=== PATIENT | female | born 2000 | race Caucasian/White ===

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

== ENCOUNTER 2019-06-04 19:20 | Emergency (ER) | payer BC ==
[2019-06-04 20:32] VITALS: RESP 18
--- NOTE | 2019-06-04 22:09 | ED ---
General Adult HPI - General Chief complaint: Neuro Symptoms/Deficit Stated complaint: Weakness, Numbness L side, sent by for MRI Time Seen by Provider: 06/04/19 21:01 Source: patient Mode of arrival: ambulatory Limitations: no limitations - History of Present Illness Initial comments: 18-year-old female patient presents to the emergency department today for evaluation of headache, left-sided weakness, left-sided numbness. Patient states she's had symptoms for the last 2 weeks worsening over the last couple of days. Patient states that she has had similar experiences frequently over the last 4 years. Patient states that one symptoms, they last approximately 2-3 weeks and then resolved spontaneously. Patient states that she has been evaluated by her primary care physician and has had labs performed multiple times. She states that she has never received an official diagnosis. She denies ever having CT scan or MRI. Patient was seen at urgent care this evening and was advised to present to the emergency department for MRI. Patient states currently she has generalized headache with increased pain or behind the left thigh. Patient states she does occasionally get black spots or flashes in the left vision. States that she has numbness and tingling below the left knee. States that she also becomes very fatigued with these episodes and couldn't sleep 18 hours a day and not feel rested. She states that today when attempting to go up the stairs she is having difficulty getting her legs to work. Patient states occasionally her gait is often she years in one direction. She denies any fever or chills. She denies any chest pain, shortness of breath, nausea, or vomiting. Patient denies any recent rash, diarrhea, constipation, back pain, hematuria, dysuria, urinary urgency, urinary frequency, or any other complaints. Denies chance of . - Related Data Home Medications Medication Instructions Recorded Confirmed Falotec-Eyau-Srcy [id number] 1 - 2 tab PO Q6H PRN 06/04/19 06/04/19 [Excedrin] Enskyce 0.15mg/0.03mg 1 tab PO HS 06/04/19 06/04/19 Allergies Allergy/AdvReac Type Severity Reaction Status Date / Time blue dye Allergy Unknown Verified 06/04/19 21:37 Review of Systems ROS Statement: Those systems with pertinent positive or pertinent negative responses have been documented in the HPI. ROS Other: All systems not noted in ROS Statement are negative. Past Medical History Past Medical History: No Reported History History of Any Multi-Drug Resistant Organisms: None Reported Past Surgical History: Hernia Repair Past Psychological History: No Psychological Hx Reported Smoking Status: Never smoker Past Alcohol Use History: None Reported Past Drug Use History: None Reported General Exam Limitations: no limitations General appearance: alert, in no apparent distress, other (This is a well- developed, well-nourished adult female patient in no acute distress. Vital signs upon presentation are temperature 98.5F, pulse 86, respirations 18, blood pressure 137/86, pulse ox 100% on room air.) Eye exam: Present: normal appearance, PERRL, EOMI. Absent: scleral icterus, conjunctival injection, nystagmus, periorbital swelling ENT exam: Present: normal exam, normal oropharynx, mucous membranes moist Respiratory exam: Present: normal lung sounds bilaterally. Absent: respiratory distress, wheezes, rales, rhonchi, stridor Cardiovascular Exam: Present: regular rate, normal rhythm, normal heart sounds. Absent: systolic murmur, diastolic murmur, rubs, gallop, clicks GI/Abdominal exam: Present: soft, normal bowel sounds. Absent: distended, tenderness, guarding, rebound, rigid Extremities exam: Present: normal inspection, full ROM, normal capillary refill, other (Skin to the lower extremities is pink, warm, dry. Cap refills less than 3 seconds. Post tibial pulses are 2+ and equal bilaterally.). Absent: tenderness, pedal edema, joint swelling Neurological exam: Present: alert, oriented X3, CN II-XII intact, normal gait, other (Strength in all 4 extremities are 5/5.) Psychiatric exam: Present: normal affect, normal mood Skin exam: Present: warm, dry, intact, normal color. Absent: rash Course Vital Signs 06/04/19 20:29 Temperature 98.5 F Pulse Rate 86 Respiratory 18 Rate Blood Pressure 137/86 O2 Sat by Pulse 100 Oximetry Medical Decision Making - Medical Decision Making 18-year-old female patient presented to the emergency department today for evaluation of multiple symptoms. She is reporting headache, visual disturbance, left-sided paresthesia, and disturbed gait. Physical examination is relatively unremarkable. She is neurologically intact with no obvious focal deficits. We did discuss her symptoms and history at length. Patient was sent by physician from urgent care for MRI. We did discuss that MRI is not currently available. I did offer to perform labs including Lyme testing. Patient reports she has had labs performed many times to evaluate similar symptoms and testing has been inconclusive, she declines labs today. I also discussed admission for neurology evaluation and possible MRI tomorrow, patient states she does not feel her symptoms have radically changed enough to warrant admission and feels she can follow up outpatient. She will be discharged to follow up with her primary care physician. She does want to establish care with Dr. Bonner. She is urged to request MRI and Neurology referral. Neurologist has been recommended for her. Return parameters were discussed in detail. Parent and patient verbalize understanding and agree with this plan. Case was discussed with my attending physician Dr. oDbson, who did agree with my impression and plan. Disposition Clinical Impression: Migraine, Paresthesia, Weakness Disposition: HOME SELF-CARE Condition: Good Instructions (If sedation given, give patient instructions): Migraine Headache (ED), Paresthesia (ED), Weakness (ED) Additional Instructions: Follow-up outpatient for MRI and referral for neurology. Return to the emergency department immediately for any new, worsening, or concerning symptoms. Is patient prescribed a controlled substance at d/c from ED?: No Referrals: Bk Bonner MD [Primary Care Provider] - 1-2 days Donell Maldonado MD [Medical Doctor] - 1-2 days Time of Disposition: 22:09
[2019-06-04 22:45] VITALS: BP 127/78; PULSE 84; TEMP 97.9
== END 2019-06-04 22:45 | disposition home or self-care (01) ==
LOC: EC 19:20
DX: G43.909 Migraine, unspecified, not intractable, without status migrainosus (principal); R20.2 Paresthesia of skin; R53.1 Weakness; R20.0 Anesthesia of skin; R53.83 Other fatigue; Z91.048 Other nonmedicinal substance allergy status; Z79.3 Long term (current) use of hormonal contraceptives; Z53.29 Procedure and treatment not carried out because of patient's decision for other reasons
CPT/HCPCS: 99284

== ENCOUNTER → 2019-07-31 | Outpatient (CLI) | payer BC ==
--- NOTE | 2019-07-31 07:49 | MR ---
EXAMINATION TYPE: MR brain wo/w con DATE OF EXAM: 07/31/2019 COMPARISON: NONE HISTORY: Headache TECHNIQUE: Multiplanar, multisequence images of the brain and brainstem is performed without and with IV contras t, utilizing 6.5 mL intravenous Gadavist . FINDINGS: Diffusion weighted images demonstrate no evidence of a recent infarct or other diffusion ab normality. There is no extra-axial fluid collection or significant white matter signal abnormality. The ventricular system and cisternal spaces are normal in size and appearance. The brain volume is age appropriate. T2 Star weighted images show no suspicious intraparenchymal blood product. Midline structures demonstrate normal morphology. The craniocervical junction appears within normal limits. Post contrast images demonstrate no abnormal enhancement. The dural venous sinuses appear pa tent. The visualized sinuses are clear and the globes are intact. Nasal septum slightly deviated to r ight of midline. IMPRESSION: Unremarkable study.
== END | disposition home or self-care (01) ==
LOC: RADMRIMAIN 06:46
PROVIDERS: ATTEND Psychiatry & Neurology Neurology
DX: R51 Headache (principal); Z88.1 Allergy status to other antibiotic agents; Z91.041 Radiographic dye allergy status
CPT/HCPCS: 70553; A9585

== ENCOUNTER → 2020-03-05 | Outpatient (CLI) | payer BC | END | disposition home or self-care (01) | LOC: LABWHC1 08:13 | PROVIDERS: ATTEND Family Medicine | DX: Z20.828 Contact with and (suspected) exposure to other viral communicable diseases (principal) ==

== ENCOUNTER 2023-06-27 16:30 | Emergency (ER) | payer BC ==
[2023-06-27 16:55] VITALS: TEMP 98.7
[2023-06-27 17:10] LABS: Basophils % (A) 0 %; Eosinophils % (A) 0 %; HCT 39.6 % (34.0-46.0); HGB 13.3 gm/dL (11.4-16.0); Lymphocytes # (A) 1.8 k/uL (1.0-4.8); Lymphocytes % (A) 27 %; MCH 31.2 pg (25.0-35.0); MCHC 33.6 g/dL (31.0-37.0); MCV 92.8 fL (80.0-100.0); Mean Platelet Volume 8.2; Monocytes # (A) 0.3 k/uL (0-1.0); Monocytes % (A) 4 %; Neutrophils # (A) 4.3 k/uL (1.3-7.7); Neutrophils % (A) 67 %; Platelet Count 230 k/uL (150-450); RBC 4.27 m/uL (3.80-5.40); RDW 12.7 % (11.5-15.5); WBC 6.5 k/uL (3.8-10.6)
[2023-06-27 17:29] LABS: ALT 18 U/L (4-34); AST 23 U/L (14-36); African American GFR (CKD) >90 (>60 ml/min/1.73 sqM); Albumin 4.4 g/dL (3.5-5.0); Alkaline Phosphatase 44 U/L (38-126); Anion Gap 15 mmol/L; Blood Urea Nitrogen 9 mg/dL (7-17); Calcium 9.6 mg/dL (8.4-10.2); Carbon Dioxide 19 mmol/L (22-30); Chloride 104 mmol/L (98-107); Glucose 167 mg/dL (74-99); Non-African American GFR(CKD) >90 (>60 ml/min/1.73 sqM); Potassium 3.3 mmol/L (3.5-5.1); Sodium 138 mmol/L (137-145); Total Bilirubin 0.3 mg/dL (0.2-1.3); Total Protein 7.5 g/dL (6.3-8.2)
--- NOTE | 2023-06-27 17:32 | ED ---
Arrhythmia/Palpitations HPI - General Source: patient, RN notes reviewed Mode of arrival: ambulatory Limitations: no limitations <Padmini Castillo - Last Filed: 06/27/23 17:28> <Petros Waite - Last Filed: 06/27/23 21:15> - General Chief Complaint: Arrhythmia/Palpitations Stated Complaint: high heart rate Time Seen by Provider: 06/27/23 17:28 - History of Present Illness Initial Comments: Patient is a 22-year-old female who presents to the emergency department for tachycardia. Patient has history of POTS states normally if she sits still her heart rate will decrease but today it didn't. Denies chest pain and shortness of breath. Patient feels nauseous otherwise offers no concerns (Padmini Castillo) - Related Data Home Medications Medication Instructions Recorded Confirmed Jkwconk-Bkvn-Qjba [id number] 1 - 2 tab PO Q6H PRN 06/04/19 06/04/19 [Excedrin] Enskyce 0.15mg/0.03mg 1 tab PO HS 06/04/19 06/04/19 Allergies Allergy/AdvReac Type Severity Reaction Status Date / Time blue dye Allergy Unknown Verified 06/27/23 16:44 Review of Systems ROS Other: All systems not noted in ROS Statement are negative. <Padmini Castillo - Last Filed: 06/27/23 17:28> ROS Other: All systems not noted in ROS Statement are negative. <Petros Waite - Last Filed: 06/27/23 21:15> ROS Statement: Those systems with pertinent positive or pertinent negative responses have been documented in the HPI. Past Medical History Past Medical History: No Reported History Additional Past Medical History / Comment(s): POTS, hermelindo-danlos type 3 History of Any Multi-Drug Resistant Organisms: None Reported Past Surgical History: Hernia Repair Past Psychological History: No Psychological Hx Reported Smoking Status: Never smoker Past Alcohol Use History: Occasional Past Drug Use History: Marijuana <Padmini Castillo - Last Filed: 06/27/23 17:28> General Exam Limitations: no limitations <Padmini Castillo - Last Filed: 06/27/23 17:28> - General Exam Comments Initial Comments: Visual Physical Exam Vital signs reviewed General: Well-appearing, nontoxic, no acute distress. Head: Normocephalic, atraumatic Eyes: PERRLA, EOMI ENT: Airway patent Chest: Nonlabored breathing Skin: No visual rash, normal skin tone Neuro: Alert and oriented 3 Musculoskeletal: No gross abnormalities (Padmini Castillo) Course Vital Signs 06/27/23 06/27/23 16:40 21:11 Temperature 98.7 F Pulse Rate 114 H 95 Respiratory 18 16 Rate Blood Pressure 142/93 126/88 O2 Sat by Pulse 100 100 Oximetry EKG Findings - EKG Results: EKG: interpreted by ERMD, sinus rhythm, normal axis, normal QRS EKG shows: tachycardia (Rate 109 bpm) - Blocks, [place], Hypertrophy, ST Abn: Repolarization changes or abnormalities: nonspecific abnormality, ST segment, and/or T wave <Petros Waite - Last Filed: 06/27/23 21:15> Medical Decision Making - Lab Data Result diagrams: 06/27/23 16:55 <Padmini Castillo - Last Filed: 06/27/23 17:28> - Lab Data Result diagrams: 06/27/23 16:55 06/27/23 16:55 <Petros Waite - Last Filed: 06/27/23 21:15> - Medical Decision Making I performed the QuickNote portion of this chart - Padmini Castillo PA-C (Padmini Castillo) - Lab Data Lab Results 06/27/23 06/27/23 06/27/23 Range/Units 16:55 16:55 18:26 WBC 6.5 (3.8-10.6) k/uL RBC 4.27 (3.80-5.40) m/uL Hgb 13.3 (11.4-16.0) gm/dL Hct 39.6 (34.0-46.0) % MCV 92.8 (80.0-100.0) fL MCH 31.2 (25.0-35.0) pg MCHC 33.6 (31.0-37.0) g/dL RDW 12.7 (11.5-15.5) % Plt Count 230 (150-450) k/uL MPV 8.2 Neutrophils % 67 % Lymphocytes % 27 % Monocytes % 4 % Eosinophils % 0 % Basophils % 0 % Neutrophils # 4.3 (1.3-7.7) k/uL Lymphocytes # 1.8 (1.0-4.8) k/uL Monocytes # 0.3 (0-1.0) k/uL Eosinophils # 0.0 (0-0.7) k/uL Basophils # 0.0 (0-0.2) k/uL Sodium 138 (137-145) mmol/L Potassium 3.3 L (3.5-5.1) mmol/L Chloride 104 (98-107) mmol/L Carbon Dioxide 19 L (22-30) mmol/L Anion Gap 15 mmol/L BUN 9 (7-17) mg/dL Creatinine 0.62 (0.52-1.04) mg/dL Est GFR (CKD-EPI)AfAm >90 (>60 ml/min/1.73 sqM) Est GFR (CKD-EPI)NonAf >90 (>60 ml/min/1.73 sqM) Glucose 167 H (74-99) mg/dL Calcium 9.6 (8.4-10.2) mg/dL Total Bilirubin 0.3 (0.2-1.3) mg/dL AST 23 (14-36) U/L ALT 18 (4-34) U/L Alkaline Phosphatase 44 (38-126) U/L Total Protein 7.5 (6.3-8.2) g/dL Albumin 4.4 (3.5-5.0) g/dL TSH 0.833 (0.465-4.680) mIU/L Urine Color Urine Appearance (Clear) Urine pH (5.0-8.0) Ur Specific Joanna (1.001-1.035) Urine Protein (Negative) Urine Glucose (UA) (Negative) Urine Ketones (Negative) Urine Blood (Negative) Urine Nitrite (Negative) Urine Bilirubin (Negative) Urine Urobilinogen (<2.0) mg/dL Ur Leukocyte Esterase (Negative) Urine HCG, Qual (Not Detectd) Coronavirus (PCR) (Not Detectd) 06/27/23 06/27/23 06/27/23 Range/Units 19:44 19:44 19:44 WBC (3.8-10.6) k/uL RBC (3.80-5.40) m/uL Hgb (11.4-16.0) gm/dL Hct (34.0-46.0) % MCV (80.0-100.0) fL MCH (25.0-35.0) pg MCHC (31.0-37.0) g/dL RDW (11.5-15.5) % Plt Count (150-450) k/uL MPV Neutrophils % % Lymphocytes % % Monocytes % % Eosinophils % % Basophils % % Neutrophils # (1.3-7.7) k/uL Lymphocytes # (1.0-4.8) k/uL Monocytes # (0-1.0) k/uL Eosinophils # (0-0.7) k/uL Basophils # (0-0.2) k/uL Sodium (137-145) mmol/L Potassium (3.5-5.1) mmol/L Chloride (98-107) mmol/L Carbon Dioxide (22-30) mmol/L Anion Gap mmol/L BUN (7-17) mg/dL Creatinine (0.52-1.04) mg/dL Est GFR (CKD-EPI)AfAm (>60 ml/min/1.73 sqM) Est GFR (CKD-EPI)NonAf (>60 ml/min/1.73 sqM) Glucose (74-99) mg/dL Calcium (8.4-10.2) mg/dL Total Bilirubin (0.2-1.3) mg/dL AST (14-36) U/L ALT (4-34) U/L Alkaline Phosphatase (38-126) U/L Total Protein (6.3-8.2) g/dL Albumin (3.5-5.0) g/dL TSH (0.465-4.680) mIU/L Urine Color Yellow Urine Appearance Clear (Clear) Urine pH 7.5 (5.0-8.0) Ur Specific Joanna 1.015 (1.001-1.035) Urine Protein Negative (Negative) Urine Glucose (UA) Negative (Negative) Urine Ketones Negative (Negative) Urine Blood Negative (Negative) Urine Nitrite Negative (Negative) Urine Bilirubin Negative (Negative) Urine Urobilinogen <2.0 (<2.0) mg/dL Ur Leukocyte Esterase Negative (Negative) Urine HCG, Qual Not Detected (Not Detectd) Coronavirus (PCR) Not Detected (Not Detectd) Disposition <Padmini Castillo - Last Filed: 06/27/23 17:28> Is patient prescribed a controlled substance at d/c from ED?: No <Petros Waite - Last Filed: 06/27/23 21:15> Clinical Impression: Palpitations, Hypokalemia Disposition: HOME SELF-CARE Condition: Good Instructions (If sedation given, give patient instructions): Heart Palpitations (ED) Referrals: Bk Bonner MD [Primary Care Provider] - 1-2 days
[2023-06-27] MEDS ORDERED: POTASSIUM BICARBONATE/CIT AC 20 MEQ TABLET.EFF PO ONE (19:17)
[2023-06-27] MEDS ORDERED: SODIUM CHLORIDE 0.9% 1,000 ML IV ONE (19:17)
[2023-06-27 19:58] LABS: Appearance,Urine Clear (Clear); Bilirubin,Urine Negative (Negative); Blood,Urine Negative (Negative); Color,Urine Yellow; Glucose,Urine (UA) Negative (Negative); Ketones,Urine Negative (Negative); Leukocyte Esterase,Urine Negative (Negative); Nitrite,Urine Negative (Negative); PH, Urine 7.5 (5.0-8.0); Protein,Urine Negative (Negative); Specific Gravity,Urine 1.015 (1.001-1.035); Urobilinogen,Urine <2.0 mg/dL (<2.0)
[2023-06-27 21:18] VITALS: BP 126/88; PULSE 95; RESP 16
== END 2023-06-27 21:24 | disposition home or self-care (01) ==
LOC: EC 16:30
DX: R00.2 Palpitations (principal); E87.6 Hypokalemia; R00.0 Tachycardia, unspecified; F12.90 Cannabis use, unspecified, uncomplicated; Z20.822 Contact with and (suspected) exposure to COVID-19; Z91.041 Radiographic dye allergy status
CPT/HCPCS: 36415; 80053; 81003; 81025; 84443; 85025; 87635; 93005; 96360; 99285

== ENCOUNTER 2024-03-13 14:40 | Emergency (ER) | payer BC ==
[2024-03-13 14:45] VITALS: TEMP 98
--- NOTE | 2024-03-13 15:22 | ED ---
General Adult HPI - General Source: patient, RN notes reviewed Mode of arrival: wheelchair Limitations: no limitations <Clement Flores - Last Filed: 03/13/24 15:21> <Alexsander Trevino - Last Filed: 03/13/24 19:42> - General Chief complaint: Syncope Stated complaint: syncope Time Seen by Provider: 03/13/24 14:58 - History of Present Illness Initial comments: Quick [id number] female presents emergency department chief complaint of dizziness, possible syncope, confusion. She states that she does have a history of POTS and passes out frequently but states that she has been having some disorientation and confusion. Patient denies any fevers or chills no other associated complaints or new medication patient is on nadolol (Clement Flores) - Related Data Home Medications Medication Instructions Recorded Confirmed Unvbbts-Anwk-Fyvl [id number] 1 - 2 tab PO Q6H PRN 06/04/19 06/04/19 [Excedrin] Enskyce 0.15mg/0.03mg 1 tab PO HS 06/04/19 06/04/19 Allergies Allergy/AdvReac Type Severity Reaction Status Date / Time blue dye Allergy Unknown Verified 03/13/24 14:45 Review of Systems ROS Other: All systems not noted in ROS Statement are negative. <Clement Flores - Last Filed: 03/13/24 15:21> ROS Other: All systems not noted in ROS Statement are negative. <Alexsander Trevino - Last Filed: 03/13/24 19:42> ROS Statement: Those systems with pertinent positive or pertinent negative responses have been documented in the HPI. Past Medical History Past Medical History: No Reported History Additional Past Medical History / Comment(s): POTS, hermelindo-danlos type 3 History of Any Multi-Drug Resistant Organisms: None Reported Past Surgical History: Hernia Repair Past Psychological History: No Psychological Hx Reported Smoking Status: Never smoker Past Alcohol Use History: Occasional Past Drug Use History: Marijuana <Clement Flores - Last Filed: 03/13/24 15:21> General Exam Limitations: no limitations <Clement Flores - Last Filed: 03/13/24 15:21> - General Exam Comments Initial Comments: Visual Physical Exam Vital signs reviewed General: Well-appearing, nontoxic, no acute distress. Head: Normocephalic, atraumatic Eyes: PERRLA, EOMI ENT: Airway patent Chest: Nonlabored breathing Skin: No visual rash, normal skin tone Neuro: Alert and oriented 3 Musculoskeletal: No gross abnormalities (Clement Flores) Course Vital Signs 03/13/24 14:43 Temperature 98.0 F Pulse Rate 86 Respiratory 16 Rate Blood Pressure 133/92 O2 Sat by Pulse 100 Oximetry EKG Findings - EKG Comments: EKG Findings:: EKG is sinus 83 SD 149 QRS 67 QTc 372 - EKG Results: EKG: interpreted by ERMD <Alexsander Trevino - Last Filed: 03/13/24 19:42> Medical Decision Making <Clement Flores - Last Filed: 03/13/24 15:21> - Lab Data Result diagrams: 03/13/24 15:30 03/13/24 15:30 <Alexsander Trevino - Last Filed: 03/13/24 19:42> - Medical Decision Making I completed the quick note portion of this chart signed Clement Flores PA-C (Clement Flores) - Lab Data Lab Results 03/13/24 03/13/24 03/13/24 Range/Units 15:30 15:30 16:04 WBC 5.0 (3.8-10.6) k/uL RBC 4.47 (3.80-5.40) m/uL Hgb 13.8 (11.4-16.0) gm/dL Hct 41.6 (34.0-46.0) % MCV 93.1 (80.0-100.0) fL MCH 31.0 (25.0-35.0) pg MCHC 33.3 (31.0-37.0) g/dL RDW 12.7 (11.5-15.5) % Plt Count 254 (150-450) k/uL MPV 8.2 Neutrophils % 51 % Lymphocytes % 36 % Monocytes % 7 % Eosinophils % 2 % Basophils % 1 % Neutrophils # 2.6 (1.3-7.7) k/uL Lymphocytes # 1.8 (1.0-4.8) k/uL Monocytes # 0.3 (0-1.0) k/uL Eosinophils # 0.1 (0-0.7) k/uL Basophils # 0.0 (0-0.2) k/uL Sodium 138 (137-145) mmol/L Potassium 4.4 (3.5-5.1) mmol/L Chloride 107 (98-107) mmol/L Carbon Dioxide 25 (22-30) mmol/L Anion Gap 6 mmol/L BUN 8 (7-17) mg/dL Creatinine 0.59 (0.52-1.04) mg/dL Est GFR (CKD-EPI)AfAm >90 (>60 ml/min/1.73 sqM) Est GFR (CKD-EPI)NonAf >90 (>60 ml/min/1.73 sqM) Glucose 90 (74-99) mg/dL Plasma Lactic Acid Santi (0.7-2.0) mmol/L Calcium 10.0 (8.4-10.2) mg/dL Magnesium 2.0 (1.6-2.3) mg/dL Total Bilirubin 0.4 (0.2-1.3) mg/dL AST 24 (14-36) U/L ALT 14 (4-34) U/L Alkaline Phosphatase 49 (38-126) U/L Ammonia (<30) umol/L Total Protein 7.1 (6.3-8.2) g/dL Albumin 4.4 (3.5-5.0) g/dL TSH 0.830 (0.465-4.680) mIU/L Urine Color Light Yellow Urine Appearance Cloudy H (Clear) Urine pH 7.0 (5.0-8.0) Ur Specific [place] 1.022 (1.001-1.035) Urine Protein Negative (Negative) Urine Glucose (UA) Negative (Negative) Urine Ketones Negative (Negative) Urine Blood Negative (Negative) Urine Nitrite Negative (Negative) Urine Bilirubin Negative (Negative) Urine Urobilinogen <2.0 (<2.0) mg/dL Ur Leukocyte Esterase Trace H (Negative) Urine RBC <1 (0-5) /hpf Urine WBC 1 (0-5) /hpf Ur Squamous Epith Cells 4 (0-4) /hpf Urine Mucus Many H (None) /hpf Urine HCG, Qual (Not Detectd) Salicylates mg/dL Acetaminophen ug/mL Heterophile Antibody (Negative) 03/13/24 03/13/24 03/13/24 Range/Units 16:04 17:54 17:54 WBC (3.8-10.6) k/uL RBC (3.80-5.40) m/uL Hgb (11.4-16.0) gm/dL Hct (34.0-46.0) % MCV (80.0-100.0) fL MCH (25.0-35.0) pg MCHC (31.0-37.0) g/dL RDW (11.5-15.5) % Plt Count (150-450) k/uL MPV Neutrophils % % Lymphocytes % % Monocytes % % Eosinophils % % Basophils % % Neutrophils # (1.3-7.7) k/uL Lymphocytes # (1.0-4.8) k/uL Monocytes # (0-1.0) k/uL Eosinophils # (0-0.7) k/uL Basophils # (0-0.2) k/uL Sodium (137-145) mmol/L Potassium (3.5-5.1) mmol/L Chloride (98-107) mmol/L Carbon Dioxide (22-30) mmol/L Anion Gap mmol/L BUN (7-17) mg/dL Creatinine (0.52-1.04) mg/dL Est GFR (CKD-EPI)AfAm (>60 ml/min/1.73 sqM) Est GFR (CKD-EPI)NonAf (>60 ml/min/1.73 sqM) Glucose (74-99) mg/dL Plasma Lactic Acid Santi 0.8 (0.7-2.0) mmol/L Calcium (8.4-10.2) mg/dL Magnesium (1.6-2.3) mg/dL Total Bilirubin (0.2-1.3) mg/dL AST (14-36) U/L ALT (4-34) U/L Alkaline Phosphatase (38-126) U/L Ammonia <9 (<30) umol/L Total Protein (6.3-8.2) g/dL Albumin (3.5-5.0) g/dL TSH (0.465-4.680) mIU/L Urine Color Urine Appearance (Clear) Urine pH (5.0-8.0) Ur Specific [place] (1.001-1.035) Urine Protein (Negative) Urine Glucose (UA) (Negative) Urine Ketones (Negative) Urine Blood (Negative) Urine Nitrite (Negative) Urine Bilirubin (Negative) Urine Urobilinogen (<2.0) mg/dL Ur Leukocyte Esterase (Negative) Urine RBC (0-5) /hpf Urine WBC (0-5) /hpf Ur Squamous Epith Cells (0-4) /hpf Urine Mucus (None) /hpf Urine HCG, Qual Not Detected (Not Detectd) Salicylates <1.0 mg/dL Acetaminophen <10.0 ug/mL Heterophile Antibody (Negative) 03/13/24 Range/Units 17:54 WBC (3.8-10.6) k/uL RBC (3.80-5.40) m/uL Hgb (11.4-16.0) gm/dL Hct (34.0-46.0) % MCV (80.0-100.0) fL MCH (25.0-35.0) pg MCHC (31.0-37.0) g/dL RDW (11.5-15.5) % Plt Count (150-450) k/uL MPV Neutrophils % % Lymphocytes % % Monocytes % % Eosinophils % % Basophils % % Neutrophils # (1.3-7.7) k/uL Lymphocytes # (1.0-4.8) k/uL Monocytes # (0-1.0) k/uL Eosinophils # (0-0.7) k/uL Basophils # (0-0.2) k/uL Sodium (137-145) mmol/L Potassium (3.5-5.1) mmol/L Chloride (98-107) mmol/L Carbon Dioxide (22-30) mmol/L Anion Gap mmol/L BUN (7-17) mg/dL Creatinine (0.52-1.04) mg/dL Est GFR (CKD-EPI)AfAm (>60 ml/min/1.73 sqM) Est GFR (CKD-EPI)NonAf (>60 ml/min/1.73 sqM) Glucose (74-99) mg/dL Plasma Lactic Acid Santi (0.7-2.0) mmol/L Calcium (8.4-10.2) mg/dL Magnesium (1.6-2.3) mg/dL Total Bilirubin (0.2-1.3) mg/dL AST (14-36) U/L ALT (4-34) U/L Alkaline Phosphatase (38-126) U/L Ammonia (<30) umol/L Total Protein (6.3-8.2) g/dL Albumin (3.5-5.0) g/dL TSH (0.465-4.680) mIU/L Urine Color Urine Appearance (Clear) Urine pH (5.0-8.0) Ur Specific [place] (1.001-1.035) Urine Protein (Negative) Urine Glucose (UA) (Negative) Urine Ketones (Negative) Urine Blood (Negative) Urine Nitrite (Negative) Urine Bilirubin (Negative) Urine Urobilinogen (<2.0) mg/dL Ur Leukocyte Esterase (Negative) Urine RBC (0-5) /hpf Urine WBC (0-5) /hpf Ur Squamous Epith Cells (0-4) /hpf Urine Mucus (None) /hpf Urine HCG, Qual (Not Detectd) Salicylates mg/dL Acetaminophen ug/mL Heterophile Antibody Negative (Negative) Disposition <Clement Flores M - Last Filed: 03/13/24 15:21> Is patient prescribed a controlled substance at d/c from ED?: No <Alexsander Trevino - Last Filed: 03/13/24 19:42> Clinical Impression: Syncope, Altered mental status Disposition: HOME SELF-CARE Condition: Good Instructions (If sedation given, give patient instructions): Altered Mental Status (ED) Referrals: Bk Bonner MD [Primary Care Provider] - 1-2 days
[2024-03-13 16:06] LABS: Basophils % (A) 1 %; Eosinophils # (A) 0.1 k/uL (0-0.7); Eosinophils % (A) 2 %; HCT 41.6 % (34.0-46.0); HGB 13.8 gm/dL (11.4-16.0); Lymphocytes # (A) 1.8 k/uL (1.0-4.8); Lymphocytes % (A) 36 %; MCHC 33.3 g/dL (31.0-37.0); MCV 93.1 fL (80.0-100.0); Mean Platelet Volume 8.2; Monocytes # (A) 0.3 k/uL (0-1.0); Monocytes % (A) 7 %; Neutrophils # (A) 2.6 k/uL (1.3-7.7); Neutrophils % (A) 51 %; Platelet Count 254 k/uL (150-450); RBC 4.47 m/uL (3.80-5.40); RDW 12.7 % (11.5-15.5)
[2024-03-13 16:29] LABS: Appearance,Urine Cloudy (Clear); Bilirubin,Urine Negative (Negative); Blood,Urine Negative (Negative); Color,Urine Light Yellow; Glucose,Urine (UA) Negative (Negative); Ketones,Urine Negative (Negative); Leukocyte Esterase,Urine Trace (Negative); Mucus,Urine Many /hpf; Nitrite,Urine Negative (Negative); Protein,Urine Negative (Negative); RBC,Urine <1 /hpf (0-5); Specific Gravity,Urine 1.022 (1.001-1.035); Squamous Epithelial Cell,Urine 4 /hpf (0-4); Urobilinogen,Urine <2.0 mg/dL (<2.0); WBC,Urine 1 /hpf (0-5)
[2024-03-13 16:52] LABS: ALT 14 U/L (4-34); AST 24 U/L (14-36); African American GFR (CKD) >90 (>60 ml/min/1.73 sqM); Albumin 4.4 g/dL (3.5-5.0); Alkaline Phosphatase 49 U/L (38-126); Anion Gap 6 mmol/L; Blood Urea Nitrogen 8 mg/dL (7-17); Carbon Dioxide 25 mmol/L (22-30); Chloride 107 mmol/L (98-107); Glucose 90 mg/dL (74-99); Non-African American GFR(CKD) >90 (>60 ml/min/1.73 sqM); Potassium 4.4 mmol/L (3.5-5.1); Sodium 138 mmol/L (137-145); Total Bilirubin 0.4 mg/dL (0.2-1.3); Total Protein 7.1 g/dL (6.3-8.2)
[2024-03-13 18:20] LABS: Lactic Acid, Venous 0.8 mmol/L (0.7-2.0)
--- NOTE | 2024-03-13 18:24 | CT ---
EXAMINATION TYPE: CT brain wo con CT DLP: 1125.4 mGycm, Automated exposure control for dose reduction was used. DATE OF EXAM: 03/13/2024 6:04 PM COMPARISON: MRI 07/31/2019. CLINICAL INDICATION:Female, 23 years old with history of ams, syncope and confusion TECHNIQUE: Brain: Axial CT images of the brain were obtained with coronal and sagittal reformats created and rev iewed. Contrast used: None. Oral contrast used: None. FINDINGS: Brain: Extra-axial spaces: No abnormal extra-axial fluid collections. Ventricular system: Within normal limits Cerebral parenchyma: No acute intraparenchymal hemorrhage or mass effect. The mckeon-white junction is well differentiated. Cerebellum: Unremarkable. Mass effect: No evidence of midline shift. Intracranial vasculature: unremarkable Soft tissues: Normal. Calvarium/osseous structures: No depressed skull fracture. Paranasal sinuses and mastoid air cells: Mild scattered paranasal sinus disease. Visualized orbits: Orbital contents are intact. IMPRESSION: No acute intracranial process.
[2024-03-13 18:52] LABS: Acetaminophen <10.0 ug/mL; Salicylate <1.0 mg/dL
[2024-03-13 19:49] VITALS: BP 118/84; PULSE 94; RESP 18
== END 2024-03-13 19:56 | disposition home or self-care (01) ==
LOC: EC 14:40
DX: R55 Syncope and collapse (principal); R41.82 Altered mental status, unspecified; Z91.041 Radiographic dye allergy status
CPT/HCPCS: 36415; 70450; 80053; 80143; 80179; 81001; 81025; 82140; 83605; 83735; 84443; 85025; 86308; 93005; 99284

== ENCOUNTER → 2024-07-29 | Outpatient (CLI) | payer BC ==
[2024-07-29 18:43] LABS: HCT 37.6 % (37.2-46.3); HGB 12.5 g/dL (12.0-15.0); MCH 29.6 pg (27.0-32.0); MCHC 33.2 g/dL (32.0-37.0); MCV 88.9 FL (80.0-97.0); Mean Platelet Volume 10.4 FL (9.5-12.2); NRBC Per 100 WBC 0 X 10*3/uL (0.00-0.01); Platelet Count 267 X 10*3/uL (140-440); RBC 4.23 X 10*6/uL (4.10-5.20); WBC 6.65 X 10*3/uL (4.50-10.00)
== END | disposition home or self-care (01) ==
LOC: LABPAT 15:00
PROVIDERS: ATTEND Surgery Plastic and Reconstructive Surgery
DX: Z01.818 Encounter for other preprocedural examination (principal); K43.2 Incisional hernia without obstruction or gangrene
CPT/HCPCS: 36415; 85027

== ENCOUNTER → 2024-08-02 | Day surgery (SDC) | payer BC ==
[2024-07-29 11:41] VITALS: BMI 20.9
[~2024-08-02] MED LIST: GLYCOPYRROLATE 0.2 MG/ML 2 ML VIAL ONE; HYDROmorphone (PF) 1 MG/ML ONE; LIDOCAINE 1% (10MG/ML) FOR IV START INTRADERMA PRN; LIDOCAINE 1% INJ 10MG/ML (20 ML MDV) ONE; MIDAZOLAM 2 MG/2 ML VIAL IV PRN; MIDAZOLAM 2 MG/2 ML VIAL ONE; NEOSTIGMINE 1 MG/ML 10 ML VIAL ONE; PHENYLEPHRINE 10 MG/ML VIAL ONE; PROPOFOL 10 MG/ML 20 ML VIAL IV ONE; ROCURONIUM 10 MG/ML (5 ML VIAL) IV ONE; SUCCINYLCHOLINE CHLORIDE 200 MG/10 ML VIAL IV ONE; fentaNYL (PF) 50 MCG/ML 2 ML AMP IVP PRN; fentaNYL (PF) 50 MCG/ML 2 ML AMP ONE
--- NOTE | 2024-08-02 06:50 | P.GSHP ---
History of Present Illness H&P Date: 08/02/24 CHIEF COMPLAINT: Ventral hernia. HISTORY OF PRESENT ILLNESS: The patient is a 24-year-old female who presents with a of multiple prior abdominal wall hernia repairs. She reports recurrence. Now she presents for further evaluation and management. She has Erler's Danlos syndrome. PAST MEDICAL HISTORY: Please see list and reviewed. PAST SURGICAL HISTORY: Please see list and reviewed. MEDICATIONS: Please see list and reviewed. ALLERGIES: Please see list and reviewed. SOCIAL HISTORY: Please see list and reviewed. FAMILY HISTORY: No reports of Crohn disease or ulcerative colitis. REVIEW OF ORGAN SYSTEMS: CONSTITUTIONAL: No reports of fevers or chills. Has morbid obesity.. GI: Denies any blood in stools or constipation. HEENT: Denies any trouble with vision, hearing or nosebleeds. No difficulty swallowing. LYMPHATIC: The patient denies any lumps and bumps around the neck. ENDOCRINE: Denies any thyroid disorders. Denies any blood sugar glucose intolerance. RESPIRATORY: Denies pneumonia. Denies any troubles with breathing or dyspnea on exertion. CARDIOVASCULAR: Denies any chest pain, palpitations, or recent heart attacks. GENITOURINARY: Denies any blood in urine or increased urinary frequency. MUSCULOSKELETAL: Has Erler's Danlos syndrome. NEUROLOGIC: Denies any numbness or tingling along the distal extremities. No seizure disorders or headaches. PSYCHIATRIC: Has depression. No suidical ideation. HEMATOLOGIC: Denies any abnormal bleeding or bruising. BREASTS: Denies any breast lumps, pain or nipple discharge. PHYSICAL EXAM: VITAL SIGNS: Stable GENERAL: Well-developed pleasant female in no acute distress. HEENT: No scleral icterus. Extraocular movements grossly intact. Moist buccal mucosa. NECK: Supple without lymphadenopathy. CHEST: Unlabored respirations. Equal bilateral excursions. CARDIOVASCULAR: Regular rate and rhythm. Distal 2+ pulses. ABDOMEN: Soft, nondistended. Tender along the abdomen. MUSCULOSKELETAL: No clubbing, cyanosis, or edema. SKIN: Well perfused. PSYCH: Alert and oriented. No focal or lateralizing signs. ASSESSMENT: 1. Ventral hernia, 2. Erler's Danlos syndrome PLAN: 1. Recommend proceeding with robotic ventral hernia repair with mesh. 2. Benefits and risks of surgical intervention was discussed including possibility of open technique. 3. DVT prophylaxis. 4. Antibiotic prophylaxis. 5. She is elevated risk with Erler's Danlos syndrome 6. Nutritional assessment includes increase protein intake for optimal recovery 7. Non-narcotic pain managment reviewed. Past Medical History Past Medical History: Syncope Additional Past Medical History / Comment(s): Current numbness to right side of chin from midline over. POTS, hermelindo-danlos type 3-sometimes has issues with wounds healing. "Syncope or pre syncope" Migraines. History of Any Multi-Drug Resistant Organisms: None Reported Past Surgical History: Hernia Repair Additional Past Surgical History / Comment(s): Umbilical surgery. Past Anesthesia/Blood Transfusion Reactions: No Reported Reaction, Motion Sickness, Postoperative Nausea & Vomiting (PONV) Additional Past Anesthesia/Blood Transfusion Reaction / Comment(s): No hx of blood transfusion to date. Smoking Status: Never smoker - Past Family History Father Family Medical History: No Reported History Medications and Allergies Home Medications Medication Instructions Recorded Confirmed Type [id number] 1 - 2 tab PO Q6H PRN 06/04/19 08/02/24 History [Excedrin] Enskyce 0.15mg/0.03mg 1 tab PO HS 06/04/19 08/02/24 History Ibuprofen [Motrin] 600 mg PO Q6HR PRN 07/29/24 08/02/24 History nadoloL [Corgard] 20 mg PO QAM 07/29/24 08/02/24 History Allergies Allergy/AdvReac Type Severity Reaction Status Date / Time blue dye Allergy Rash/Hives Verified 08/02/24 06:39 Z-pack Allergy Vomiting Uncoded 08/02/24 06:39 Surgical - Exam Vital Signs Temp Pulse Resp BP Pulse Ox 97.6 F 74 16 131/80 97 08/02/24 06:37 08/02/24 06:37 08/02/24 06:37 08/02/24 06:37 08/02/24 06:37
[2024-08-02] MEDS: IV FLUID CONTINUATION 1,000 ML IV ONE (06:57)
[2024-08-02] MEDS: SCOPOLAMINE 1 MG/72 HR PATCH TRANSDERM STA (06:59)
[2024-08-02] MEDS: MELOXICAM 7.5 MG TAB PO PRN (06:59)
[2024-08-02] MEDS: ONDANSETRON 4 MG/2 ML VIAL IVP ONE (06:59)
[2024-08-02] MEDS: DEXAMETHASONE SOD PHOSPHATE 4 MG/ML 1 ML VIAL IV ONE (06:59)
[2024-08-02] MEDS: HEPARIN SODIUM,PORCINE 5,000 UNIT/ML 1 ML VIAL SQ PRN (06:59)
[2024-08-02] MEDS: ACETAMINOPHEN TAB 500 MG TAB PO PRN (07:00)
[2024-08-02] MEDS: LIDOCAINE 1%-EPI 1:100,000 20 ML VIAL SQ ONE (07:58)
[2024-08-02] MEDS: LACTATED RINGERS 1,000 ML IV ONE ×2 (08:38→13:00)
[2024-08-02 09:38] VITALS: TEMP 97
[2024-08-02] MEDS: HYDROmorphone 0.5 MG/0.5 ML SYRINGE IVP PRN (10:07)
--- NOTE | 2024-08-02 10:08 | P.OP ---
Date of Procedure: 08/02/24 Description of Procedure: SURGEON: KIM TEJEDA MD HAND III CUTTER: YESSY PREOPERATIVE DIAGNOSES: 1. Recurrent ventral hernia 2. Erler's Danlos syndrome 3. POTS syndrome POSTOPERATIVE DIAGNOSES: 1. Recurrent incarcerated ventral hernia, 3 x 2 cm 2. Erler's Danlos syndrome 3. POTS syndrome 4. Diastases recti OPERATION: 1. Robotic-assisted da John Xi laparoscopic repair of recurrent incarcerated ventral hernia with mesh, ventralight ST mesh 10 x 15 cm Anesthesia: GETA, regional, local Estimated Blood Loss (ml): 5 Pathology: 1. Incarcerated umbilical hernia defect COMPLICATIONS: None. Operative Findings: 1. Recurrent incarcerated ventral hernia Montenegrin cheese defect x 3, 3 x 2 cm with incarcerated peritoneal fat 2. 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 Fascia repaired using #1 V-lock suture INDICATIONS: The patient is a 24-year-old female who presents with a personal history of multiple abdominal wall hernias including prior repairs. Surgical intervention with laparoscopic versus robotic and open techniques were reviewed. Placement of mesh was also reviewed. Benefits and risks were thoroughly described. Informed consent was obtained. DESCRIPTION OF PROCEDURE: The patient was brought into the operating room and laid in supine position. After general induction, the abdomen had been prepped and draped in standard sterile fashion. Ioban draping was also placed. Prior to incision, a timeout protocol was confirmed with surgical team regarding the patient's name including procedures to be performed. The robot was primed prior to the procedure. A field block using local anesthetic was placed along hernia site including the proposed port sites. Initial incision was made with an #11 blade along the left upper quadrant. A 0 degree 5 mm laparoscopic trocar entry was performed and insufflated. Two 8 mm ports were placed along the left lateral abdominal wall under direct localization after exchanging the 5-mm for a 12 mm port. Placements of the ports were 10 cm from the target anatomy and 9 cm apart. The [employer] Xi robot was previously primed, prepped and draped then docked from the right side of the patient onto the left side of the patient. I then sat at the robot artandseeki Xi console where working arms of the robot including Bovie cautery connected to robotic scissors, needle armored car driver, and graspers placed by the assistant professor of art. The fascia of the abdominal wall was cleaned of fat at the umbilicus including 3 cm proximal demonstrating incarcerated ventral hernia x 3 each measuring 0.5 cm in size. Combined defect was 3 cm left by 2 cm width. An overlap and diastases recti was identified from the xiphoid towards the pubis. Defects were reduced with preperitoneal fat. The incarcerated contents were reduced as the peritoneal fat was cleaned from the abdominal wall. Next, hemostasis was checked with cautery. The hernia defects were oversewn using #1 nonabsorbable V-lock suture with fascial imbrication x 2. Next, ventralight ST mesh 10 x 15 cm was placed with the rough side towards the abdominal wall as to cover the epigastric including umbilical defect. 2-0 VLOC 12-inch sutures were used to fixate the mesh. A final endoscopic imaging was obtained. All instruments and pneumoperitoneum were evacuated from the abdominal cavity. The da John Xi robot was undocked from the patient. I re-scrubbed into the case for closure of incisions. The fascia of the 12-mm port was probed and less than 8-mm in size. The inci sions were reapproximated using 4-0 Monocryl in an interrupted subcuticular fashion. Dermabond liquid glue with tape was applied to the skin after cleansing the skin with normal saline and dilute hydrogen peroxide. An abdominal binder was placed. An umbilical dressing was placed prior. At the end of the procedure, needle, sponge, and instrument count had been verified correct by gi technician. The patient was taken to the postanesthesia care unit in stable condition. Plan - Discharge Summary Discharge Rx Participant: No New Discharge Prescriptions: New Simethicone [Gas-X] 125 mg PO AC-TID PRN #20 capsule PRN Reason: Pain Ibuprofen [Motrin] 600 mg PO Q8HR PRN #30 tab PRN Reason: Pain Acetaminophen Tab [Tylenol Tab] 1,000 mg PO Q6HR PRN #30 tablet PRN Reason: Pain Continue Enskyce 0.15mg/0.03mg 1 tab PO HS [id number] [id number] [Excedrin] 1 - 2 tab PO Q6H PRN PRN Reason: Migraine Headache nadoloL [Corgard] 20 mg PO QAM Discontinued Ibuprofen [Motrin] 600 mg PO Q6HR PRN PRN Reason: Pain Discharge Medication List [id number] [Excedrin] 1 - 2 tab PO Q6H PRN 06/04/19 [History] Enskyce 0.15mg/0.03mg 1 tab PO HS 06/04/19 [History] nadoloL [Corgard] 20 mg PO QAM 07/29/24 [History] Acetaminophen Tab [Tylenol Tab] 1,000 mg PO Q6HR PRN #30 tablet 08/02/24 [Rx] Ibuprofen [Motrin] 600 mg PO Q8HR PRN #30 tab 08/02/24 [Rx] Simethicone [Gas-X] 125 mg PO AC-TID PRN #20 capsule 08/02/24 [Rx] Follow up Appointment(s)/Referral(s): Kim Tejeda MD [STAFF PHYSICIAN] - 08/06/24 3:00 pm Patient Instructions/Handouts: *Surgery [facility] - Scopalamine Patch Instructions, Abdominal Binder (DC), Ventral Hernia Repair (GEN) Activity/Diet/Wound Care/Special Instructions: DO NOT REMOVE UMBILICAL DRESSING. NO LONG DRIVES OR AIRPLANE RIDES OVER 60 MINUTES FOR THE NEXT 2 WEEKS, 08/16/24, DUE TO HIGH RISK OF PULMONARY EMBOLISM/DVTs Using antibacterial soap. No lifting over 4 pounds 4 weeks, 09/01/24 May shower. No bathtub soaks for 2 weeks, 08/16/24 Wear abdominal binder daily for comfort except for showering. Use ice along incisions for today to prevent swelling. Take tylenol, aleve/ibuprofen, simethicone scheduled for 3 days for best pain relief Discharge Disposition: HOME SELF-CARE
[2024-08-02] MEDS: ONDANSETRON 4 MG/2 ML VIAL IVP PRN (12:47)
[2024-08-02] MEDS: LACTATED RINGERS 1,000 ML IV SCH (13:05)
[2024-08-02 13:48] VITALS: BP 102/62; PULSE 94; RESP 18
== END | disposition home or self-care (01) ==
LOC: OR 05:59
PROVIDERS: ATTEND Surgery Plastic and Reconstructive Surgery
DX: K43.0 Incisional hernia with obstruction, without gangrene (principal); Q79.60 Ehlers-Danlos syndrome, unspecified; G90.A Postural orthostatic tachycardia syndrome [POTS]; M62.08 Separation of muscle (nontraumatic), other site; Z88.1 Allergy status to other antibiotic agents; Z91.041 Radiographic dye allergy status; Z79.899 Other long term (current) drug therapy
CPT/HCPCS: 49616; J1644; J1100; J0690; J2405; J1171; 81025; 88302